=== PATIENT | male | born 2000 | race Caucasian/White ===

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

== ENCOUNTER 2020-10-23 20:09 | Inpatient (IN) ==
[2020-10-23 20:52] LABS: Basophils # 0.1 K/mcL (0.0-0.2); Basophils % 0.4 %; Eosinophils % 0.3 %; Hematocrit 48.6 % (37.5-50.1); Hemoglobin 16.5 g/dL (12.9-16.9); Immature Granulocytes % 0.3 % (0-4); Lymphocytes # 1.8 K/mcL (0.6-4.6); Lymphocytes % 14.5 %; Mean Corpuscular Hemoglobin 30.6 pg (28.0-33.3); Mean Corpuscular Volume 90.2 fL (83.0-100.0); Mean Platelet Volume 9.7 fL (9.4-12.4); Monocytes # 0.7 K/mcL (0.0-1.3); Monocytes % 5.9 %; Neutrophils # 9.5 K/mcL (1.6-8.9); Platelet Count 236 K/mcL (140-400); Red Blood Count 5.39 M/mcL (4.19-5.50); Red Cell Distribution Width 12.3 % (11.5-14.5); Segmented Neutrophils % 78.6 %; White Blood Count 12.1 K/mcL (4.3-11.1)
[2020-10-23 20:52] LABS: Bilirubin,Urine Negative (Negative); Blood,Urine Negative (Negative); Clarity,Urine Clear (Clear); Color,Urine Yellow (Yellow); Glucose,Urine (UA) Normal (Normal); Ketones,Urine Negative (Negative); Leukocyte Esterase,Urine Negative (Negative); Nitrite,Urine Negative (Negative); Protein,Urine Trace mg/dL (Neg-Trace); Specific Gravity,Urine 1.028 (1.010-1.025); Urobilinogen,Urine Normal (Normal)
[2020-10-23 20:53] LABS: Estimated Average Glucose 97 mg/dl
[2020-10-23 21:02] LABS: Amphetamine Screen,Urine Negative ng/mL (Cutoff=1000); Barbiturate Screen,Urine Negative ng/mL (Cutoff=200); Benzodiazepines Screen,Urine Negative ng/mL (Cutoff=200); Cannabinoid Screen,Urine Negative ng/mL (Cutoff = 50); Cocaine Screen,Urine Negative ng/mL (Cutoff= 300); Opiate Screen,Urine Negative ng/mL (Cutoff=300); Phencyclidine Screen,Urine Negative ng/mL (Cutoff=25)
[2020-10-23 21:04] LABS: Acetaminophen < 10 mcg/mL (10-20); BUN/Creatinine Ratio 14 (6-26); Blood Urea Nitrogen 14 mg/dL (6-20); Calcium 9.7 mg/dL (8.6-10.3); Carbon Dioxide 25 mEq/L (23-29); Chloride 105 mEq/L (98-107); Chol/HDL Ratio 5.5 (0-4.9); Cholesterol 181 mg/dL (< 200); Ethanol < 10 mg/dL (Less than 10); Glucose 96 mg/dL (70-105); HDL Cholesterol 33 mg/dL (40-59); LDL Cholesterol,Calculated 120 mg/dL (< 100); Osmolality,Calculated 288 (280-300); Potassium 3.8 mEq/L (3.5-5.1); Salicylate < 2.5 mg/dL (15.0-30.0); Sodium 139 mEq/L (136-145); Triglycerides 139 mg/dL (< 150); eGFR For African Americans > 60 (> 60); eGFR For Non-African Americans > 60 (> 60)
[2020-10-23] MEDS ORDERED: *HR* LORazepam 1 MG TABLET PO PRN (23:18)
[2020-10-23] MEDS ORDERED: Mag Hydrox/Al Hydrox/Simeth 30 ML UDC PO PRN (23:18)
[2020-10-23] MEDS ORDERED: *HR* LORazepam 2 MG/ML VIAL IM PRN (23:18)
[2020-10-23] MEDS ORDERED: Haloperidol Lactate 5 MG/ML VIAL IM PRN (23:18)
[2020-10-23] MEDS ORDERED: MOM Conc 10 ML UD.LIQ PO PRN (23:18)
[2020-10-23] MEDS ORDERED: traZODone 50 MG TABLET PO PRN (23:18)
[2020-10-23] MEDS ORDERED: haloperidoL 5 MG TABLET PO PRN (23:18)
[2020-10-23] MEDS ORDERED: Acetaminophen 325 MG TABLET PO PRN (23:18)
[2020-10-23] MEDS ORDERED: hydrOXYzine pamoate 25 MG CAPSULE PO PRN (23:18)
[2020-10-24] MEDS: BuPROPion XL (24 HR) 150 MG TABLET PO SCH (09:37)
[2020-10-24] MEDS: Nicotine 2 MG GUM BC PRN ×2 (12:08→16:20)
[2020-10-24] MEDS ORDERED: Nicotine 2 MG GUM BC PRN (16:22)
[2020-10-25] MEDS: BuPROPion XL (24 HR) 150 MG TABLET PO SCH (08:13)
[2020-10-25 09:36] VITALS: BP 139/90
== END 2020-10-25 11:35 | disposition home or self-care (01) | DRG 751 ==
LOC: EMEROOARM 20:09 → 1ANU 23:17
PROVIDERS: ADMIT Psychiatry & Neurology Psychiatry; ATTEND Psychiatry & Neurology Psychiatry